=== PATIENT | male | born 1950 | race Asian ===

== ENCOUNTER 2018-12-16 15:18 | Emergency (ER) | payer OTHER ==
[~2018-12-16] VITALS: Ht 177.8 cm; Wt 79.4 kg
[2018-12-16 15:34] VITALS: BP_SYST 143
--- NOTE | 2018-12-16 17:46 | NUR ---
Placed in room 2 . Placed on cardiac surgeon, blood pressure machine and pulse oximeter. To gown for exam. Side rails up. Report given to Frandy SARAVIA.
--- NOTE | 2018-12-16 17:48 | NUR ---
Pt here for c/o lower right abd pain 7/10, afebrile, tenderness upon palpation. Pt denied any nausea, vomiting, or diarrhea. Pt has colostomy bag to left abd, had surgery in July. Pt is placed on secured entrance monitor, and pulse ox. Will continue to monitor pt.
--- NOTE | 2018-12-16 17:50 | NUR ---
Dr. Dotson at bedside to assess pt.
[2018-12-16] MEDS ORDERED: fentaNYL CITRATE/PF 100 MCG/2 ML AMP IM ONE (18:15)
[2018-12-16 18:18] LABS: BILIRUBIN,URINE NEGATIVE (NEGATIVE); BLOOD, URINE 1+ (NEGATIVE); CLARITY/URINE CLEAR (CLEAR); COLOR,URINE YELLOW (YELLOW); GLUCOSE,URINE NEGATIVE (NEGATIVE); KETONES,URINE NEGATIVE (NEGATIVE); LEUKOCYTE ESTERASE ,URINE NEGATIVE (NEGATIVE); NITRITE, URINE NEGATIVE (NEGATIVE); PROTEIN URINE NEGATIVE (NEGATIVE); UROBILINOGEN,URINE 0.2 (0.2-1.0)
[2018-12-16 18:24] LABS: BACTERIA,URINE FEW /HPF (None Seen); WBC,URINE 0-3 /HPF (0-3)
--- NOTE | 2018-12-16 18:30 | NUR ---
Pt resting in bed without complaints with at bedside.
[2018-12-16 19:15] VITALS: BP_SYST 131
--- NOTE | 2018-12-16 19:15 | NUR ---
Patient given written and verbal discharge instructions and verbalizes understanding. ER MD discussed with patient the results and treatment provided. Patient in stable condition. ID arm band removed. Rx of Motrin 800mg and tramadol hcl 50mg given. Patient educated on pain management and to follow up with PMD. Pain Scale 2.Opportunity for questions provided and answered. Medication side effect fact sheet provided.
== END 2018-12-16 19:15 | disposition home or self-care (01) ==
LOC: SED 15:18
DX: K40.90 Unilateral inguinal hernia, without obstruction or gangrene, not specified as recurrent (principal); I71.4 Abdominal aortic aneurysm, without rupture; I10 Essential (primary) hypertension
CPT/HCPCS: 74176; 81000; 93005; 96372; 99284; J3010